=== PATIENT | male | born 1960 | race Caucasian/White ===

== ENCOUNTER 2018-06-05 15:02 | Inpatient (IN) ==
[2018-06-05] MEDS ORDERED: CEFUROXIME INJ 1,500 MG in SODIUM CHLORIDE 0.9% 100 ML IV ONE (15:13)
[2018-06-05] MEDS ORDERED: GLUCAGON 1 MG VIAL IM PRN (15:13)
[2018-06-05] MEDS ORDERED: DEXTROSE 50% 25 GM/50 ML SYRINGE IV PRN (15:13)
[2018-06-05] MEDS ORDERED: SODIUM CHLORIDE 0.9% 1,000 ML IV SCH (15:30)
[2018-06-05 20:14] LABS: Basophils # 0.1 10*3/uL (0.0-0.2); Basophils % 0.5 % (0.0-0.8); Eosinophils # 0.1 10*3/uL (0.0-0.87); Eosinophils % 1.3 % (0.00-10.9); Hematocrit 46.6 VOL% (42.0-52.0); Hemoglobin 15.2 GM/DL (14.0-18.0); Immature Granulocytes % 0.5 %; Immature Granulocytes Absolute 0.05 #; Lymphocytes # 2.2 10*3/uL (1.4-4.0); Lymphocytes % 21.1 % (21.2-54.2); Mean Corpuscular HGB Conc 32.6 GM/DL (32-36); Mean Corpuscular Hemoglobin 29 PG (27-34); Mean Corpuscular Volume 88.3 FL (87-102); Monocytes # 0.9 10*3/uL (0.11-0.8); Monocytes % 8.5 % (1.7-12.7); Neutrophils % 68.1 % (38.7-73.9); Platelet Count 211 T/CUMM (130-400); Red Blood Count 5.28 MC/CUMM (3.8-5.5); Red Cell Distribution Width 13.7 % (9.3-17.3); White Blood Count 10.2 T/CUMM (4-12)
[2018-06-05] MEDS ORDERED: NITROGLYCERIN DRIP 50 MG/250 ML BOTTLE IV PRN (20:23)
[2018-06-05] MEDS ORDERED: hydrALAZINE 20 MG/1 ML VIAL IV PRN (20:24)
[2018-06-05] MEDS ORDERED: DICLOFENAC SODIUM 75 MG TABLET PO SCH (21:00)
[2018-06-05] MEDS ORDERED: ZALEPLON 5 MG CAPSULE PO PRN (21:00)
[2018-06-05] MEDS: CHLORHEXIDINE 0.12% ORAL RINSE 60 ML BOTTLE SWISH/SPIT SCH (22:30)
[2018-06-05] MEDS: CHLORHEXIDINE 4% SOLN 118 ML BOTTLE TOP SCH (22:30)
[2018-06-05] MEDS: tiZANidine 4 MG TABLET PO SCH (22:31)
[2018-06-05] MEDS: DICLOFENAC SODIUM 50 MG TABLET PO SCH (22:31)
[2018-06-05 23:26] LABS: ABG Base Excess -0.4 MMOL/L (-2.5-2.5); ABG Oxygen Saturation 95.5 % (95-100); ABG PCO2 45.6 MM HG (35-48); ABG PH 7.357 (7.35-7.45); Allen Test Positive
[2018-06-06] MEDS: CHLORHEXIDINE 4% SOLN 118 ML BOTTLE TOP SCH ×3 (00:05→09:03)
[2018-06-06] MEDS ORDERED: PAPAVERINE 60 MG/2 ML VIAL ONE (04:24)
[2018-06-06] MEDS ORDERED: VANCOMYCIN 1,000 MG VIAL ONE (04:25)
[2018-06-06] MEDS ORDERED: LORazepam 2 MG/1 ML VIAL IV ONE (05:54)
[2018-06-06] MEDS ORDERED: VANCOMYCIN INJ 1,000 MG in SODIUM CHLORIDE 0.9% 250 ML IV ONE (06:30)
[2018-06-06] MEDS ORDERED: cefOXitin 2,000 MG in SYRINGE 1 EACH IV ONE (06:30)
[2018-06-06] MEDS ORDERED: ALBUMIN 5% 12.5 GM/250 ML VIAL IV ONE (07:30)
[2018-06-06] MEDS ORDERED: NITROPRUSSIDE 50 MG/2 ML VIAL ONE (07:30)
[2018-06-06] MEDS ORDERED: POTASSIUM CHLORIDE RIDER 100 ML IV ONE (07:30)
[2018-06-06] MEDS ORDERED: PHENYLEPHRINE DRIP 40 MG/250 ML PREMIX IV ONE (07:30)
[2018-06-06] MEDS ORDERED: CALCIUM CHLORIDE 1,000 MG/10 ML SYRINGE IV ONE (07:31)
[2018-06-06 07:56] LABS: ABG Base Excess -0.5 MMOL/L (-2.5-2.5); ABG Oxygen Saturation 98.9 % (95-100); ABG PCO2 50.5 MM HG (35-48); ABG PH 7.328 (7.35-7.45); ABG TCO2 22.6 MMOL/L (23-27); Glucose Heart Surgery 141 MG/DL (74-106); Hematocrit Heart Surgery 46.9 PERCENT (42-52); Hemoglobin Heart Surgery 15.3 G/DL (14.0-18.0); Ionized Calcium Arterial 1.19 MMOL/L (1.21-1.46); PCO2 Patient Temp Arterial 50.5 MMHG; PH Patient Temp Arterial 7.328; Patient Temperature 37 CELCIUS; Potassium Heart/CVR 4.5 MMOL/L (3.5-5.1); Sodium Heart/CVR 134 MMOL/L (135-145)
[2018-06-06] MEDS ORDERED: ASPIRIN EC 325 MG TABLET PO SCH (09:00)
[2018-06-06] MEDS ORDERED: LOSARTAN 25 MG TABLET PO SCH (09:00)
[2018-06-06] MEDS ORDERED: SPIRONOLACTONE 25 MG TABLET PO SCH (09:00)
[2018-06-06] MEDS ORDERED: CHOLECALCIFEROL 1,000 UNIT TABLET PO SCH (09:00)
[2018-06-06 09:01] LABS: Apearance,Urine CLEAR (Clear); Bacteria,Urine Occasional /HPF (Few); Bilirubin,Urine Negative (Negative); Blood, Urine Negative (Negative); Glucose,Urine (UA) Negative (Negative); Hyaline Casts,Urine 3 /LPF (0-3); Ketones,Urine Negative (Negative); Mucus,Urine Occasional /LPF (Occasional); Nitrite,Urine Negative (Negative); Protein,Urine 100 MG/DL; RBC,Urine 1 /HPF (0-4); Urine Color Yellow (Yellow); Urine Specific Gravity 1.025 (1.001-1.035); Urine Urobilinogen < 2.0 EU/DL (0.2-1.0); WBC,Urine <1 /HPF (0-6)
[2018-06-06] MEDS: CHLORHEXIDINE 0.12% ORAL RINSE 60 ML BOTTLE SWISH/SPIT SCH ×2 (09:03→21:39)
[2018-06-06] MEDS: DICLOFENAC SODIUM 50 MG TABLET PO SCH (09:04)
[2018-06-06] MEDS: tiZANidine 4 MG TABLET PO SCH (09:04)
[2018-06-06] MEDS ORDERED: PHENYLEPHRINE DRIP 20 MG/250 ML PREMIX IV ONE (10:03)
[2018-06-06] MEDS ORDERED: CALCIUM CHLORIDE 1,000 MG/10 ML VIAL IV ONE (10:03)
[2018-06-06] MEDS ORDERED: VECURONIUM 10 MG VIAL IV ONE (10:03)
[2018-06-06] MEDS ORDERED: HEPARIN/NACL 0.9% 2 UNITS/ML 500 ML IV ONE (10:03)
[2018-06-06] MEDS ORDERED: NITROGLYCERIN DRIP 50 MG/250 ML BOTTLE IV ONE (10:03)
[2018-06-06] MEDS ORDERED: AMINOCAPROIC ACID 5,000 MG/20 ML VIAL ONE (10:04)
[2018-06-06] MEDS ORDERED: PHENYLEPHRINE 1 MG/10 ML SYRINGE IV ONE (10:04)
[2018-06-06 10:05] LABS: Hematocrit Heart Surgery 30.2 PERCENT (42-52); Hemoglobin Heart Surgery 9.8 G/DL (14.0-18.0); PH Patient Temp Venous 7.373; PO2 Patient Temp Venous 44.5 MM HG; Potassium Heart/CVR 4.9 MMOL/L (3.5-5.1); VBG Base Excess 0.2 MEQ/L (0-4); VBG HCO3 24.3 MEQ/L (24-28); VBG Oxygen Saturation 79.5 %; VBG PH 7.373; VBG PO2 44.5 MMHG (17-40)
[2018-06-06 10:32] LABS: Hemoglobin Heart Surgery 10.8 G/DL (14.0-18.0); PCO2 Patient Temp Venous 38.6 MM HG; PH Patient Temp Venous 7.424; PO2 Patient Temp Venous 34.4 MM HG; Potassium Heart/CVR 5.1 MMOL/L (3.5-5.1); VBG Base Excess 0.2 MEQ/L (0-4); VBG HCO3 25.4 MEQ/L (24-28); VBG Oxygen Saturation 75.9 %; VBG PH 7.38; VBG PO2 42.5 MMHG (17-40)
[2018-06-06 11:08] LABS: PH Patient Temp Venous 7.439; PO2 Patient Temp Venous 36.3 MM HG; Potassium Heart/CVR 5.3 MMOL/L (3.5-5.1); VBG Base Excess -0.8 MEQ/L (0-4); VBG HCO3 23.6 MEQ/L (24-28); VBG PCO2 38.2 MMHG (41-51); VBG PH 7.409; VBG PO2 41.8 MMHG (17-40)
[2018-06-06] MEDS ORDERED: MANNITOL 100 GM/500 ML BAG IV ONE (11:53)
[2018-06-06] MEDS ORDERED: FUROSEMIDE 20 MG/2 ML VIAL ONE (11:54)
[2018-06-06] MEDS ORDERED: ALBUMIN 25% 25 GM/100 ML VIAL IV ONE (11:54)
[2018-06-06] MEDS ORDERED: SODIUM BICARBONATE 50 MEQ/50 ML VIAL IV ONE (11:54)
[2018-06-06] MEDS ORDERED: methylPREDNISolone SOD SUC 1,000 MG/8 ML VIAL ONE (11:54)
[2018-06-06] MEDS ORDERED: MAGNESIUM SULFATE 5 GM/10 ML VIAL IV ONE (11:54)
[2018-06-06] MEDS ORDERED: HEPARIN 10,000 UNIT/10 ML VIAL ONE (11:54)
[2018-06-06] MEDS ORDERED: PROTAMINE SULFATE 250 MG/25 ML VIAL IV ONE (11:54)
[2018-06-06] MEDS ORDERED: DEXTROSE 5% KCL 20 MEQ 20 MEQ/1,000 ML BAG IV ONE (11:54)
[2018-06-06 11:55] LABS: ABG Base Excess -2.2 MMOL/L (-2.5-2.5); ABG HCO3 22.6 MMOL/L (20-26); ABG Oxygen Saturation 99.4 % (95-100); ABG PCO2 41.2 MM HG (35-48); ABG PH 7.358 (7.35-7.45); ABG TCO2 20.6 MMOL/L (23-27); Glucose Heart Surgery 234 MG/DL (74-106); Hematocrit Heart Surgery 37.2 PERCENT (42-52); Hemoglobin Heart Surgery 12.1 G/DL (14.0-18.0); Ionized Calcium Arterial 1.23 MMOL/L (1.21-1.46); PCO2 Patient Temp Arterial 41.2 MMHG; PH Patient Temp Arterial 7.358; Patient Temperature 37 CELCIUS; Potassium Heart/CVR 4.3 MMOL/L (3.5-5.1); Sodium Heart/CVR 130 MMOL/L (135-145)
[2018-06-06] MEDS ORDERED: PROTAMINE SULFATE 50 MG/5 ML VIAL IV ONE (11:55)
[2018-06-06] MEDS ORDERED: MIDAZOLAM 2 MG/2 ML VIAL IV PRN (12:46)
[2018-06-06] MEDS ORDERED: INSULIN REGULAR 100 UNIT/ML IV ONE (12:46)
[2018-06-06] MEDS ORDERED: MAGNESIUM SULF RIDER 2 GM in PREMIX 1 EACH IV PRN (12:46)
[2018-06-06] MEDS ORDERED: MIDAZOLAM 10 MG/2 ML VIAL IV PRN (12:46)
[2018-06-06] MEDS ORDERED: ACETAMINOPHEN 650 MG SUPP RECTAL PRN (12:46)
[2018-06-06] MEDS ORDERED: PHENYLEPHRINE DRIP 40 MG/250 ML PREMIX IV PRN (12:46)
[2018-06-06] MEDS ORDERED: LACTATED RINGERS 250 ML IV PRN (12:46)
[2018-06-06] MEDS ORDERED: VECURONIUM 10 MG VIAL IV PRN ×2 (12:46)
[2018-06-06] MEDS ORDERED: CALCIUM CHLORIDE 1,000 MG/10 ML SYRINGE IV PRN (12:46)
[2018-06-06] MEDS ORDERED: MAGNESIUM SULF RIDER 4 GM in PREMIX 1 EACH IV PRN (12:46)
[2018-06-06] MEDS ORDERED: POTASSIUM CHLORIDE RIDER 10 MEQ in PREMIX 1 EACH IV PRN (12:46)
[2018-06-06] MEDS ORDERED: DEXTROSE 50% 25 GM/50 ML SYRINGE IV PRN ×2 (12:46)
[2018-06-06 13:18] LABS: ABG HCO3 25.8 MMOL/L (20-26); ABG Oxygen Saturation 92.9 % (95-100); ABG PCO2 51.4 MM HG (35-48); ABG PH 7.318 (7.35-7.45); ABG PO2 73.6 MM HG (80-95); ABG TCO2 27.3 MMOL/L (23-27); Glucose Heart Surgery 173 MG/DL (74-106); Hemoglobin Heart Surgery 13.3 G/DL (14.0-18.0); Potassium Heart/CVR 4.1 MMOL/L (3.5-5.1)
[2018-06-06] MEDS: SODIUM CHLORIDE 0.45% 1,000 ML IV SCH ×2 (13:19→13:20)
[2018-06-06 13:22] LABS: Basophils % 0.3 % (0.0-0.8); Mean Platelet Volume 11.2 FL (9.6-12.0)
[2018-06-06] MEDS: LACTATED RINGERS 1,000 ML IV PRN ×2 (13:23→16:16)
[2018-06-06 13:30] LABS: INR 1.1; PT Patient Result 11.4 SECS; Partial Thromboplastin Time 24.1 SECS (0-40)
[2018-06-06 13:31] LABS: Eosinophils # 0.1 10*3/uL (0.0-0.87); Eosinophils % 0.8 % (0.00-10.9); Hematocrit 39.5 VOL% (42.0-52.0); Immature Granulocytes % 0.7 %; Immature Granulocytes Absolute 0.08 #; Lymphocytes % 8.3 % (21.2-54.2); Mean Corpuscular HGB Conc 31.9 GM/DL (32-36); Mean Corpuscular Hemoglobin 29 PG (27-34); Mean Corpuscular Volume 90.4 FL (87-102); Monocytes # 0.7 10*3/uL (0.11-0.8); Monocytes % 5.7 % (1.7-12.7); Neutrophils # 9.7 10*3/uL (1.4-7.4); Neutrophils % 84.2 % (38.7-73.9); Red Blood Count 4.37 MC/CUMM (3.8-5.5); Red Cell Distribution Width 13.6 % (9.3-17.3); White Blood Count 11.5 T/CUMM (4-12)
[2018-06-06] MEDS: POTASSIUM CHLORIDE RIDER 20 MEQ in PREMIX 1 EACH IV PRN ×4 (13:31→21:46)
[2018-06-06 13:34] LABS: Hemoglobin 12.6 GM/DL (14.0-18.0); Platelet Count 172 T/CUMM (130-400)
[2018-06-06 13:48] LABS: CKMB % 7.3 %
[2018-06-06 13:50] LABS: Troponin I 2.15 NG/ML (0.00-0.045)
[2018-06-06 13:53] LABS: Albumin 3.1 G/DL (3.4-5.0); Bilirubin,Total 1.3 MG/DL (0.2-1.0); Calcium 7.9 MG/DL (8.5-10.1); Osmolality,Calculated 282.5 MOS/KG (273-304); Potassium 4.2 MMOL/L (3.5-5.1); Total Protein 5.6 G/DL (6.4-8.3)
[2018-06-06 14:11] LABS: ABG Base Excess -0.4 MMOL/L (-2.5-2.5); ABG Oxygen Saturation 95.2 % (95-100); ABG PCO2 45.9 MM HG (35-48); ABG PH 7.354 (7.35-7.45); ABG PO2 78.6 MM HG (80-95); ABG TCO2 22.4 MMOL/L (23-27); Glucose Heart Surgery 175 MG/DL (74-106); Hematocrit Heart Surgery 41.1 PERCENT (42-52); Hemoglobin Heart Surgery 13.4 G/DL (14.0-18.0); Potassium Heart/CVR 4.6 MMOL/L (3.5-5.1)
[2018-06-06] MEDS: INSULIN REGULAR DRIP 100 ML IV SCH (14:34)
[2018-06-06] MEDS: methylPREDNISolone SOD SUC 125 MG/2 ML VIAL IV SCH ×2 (14:58→21:44)
[2018-06-06] MEDS: ALBUTEROL/IPRATROPIUM 3 ML NEB RESP TX SCH ×3 (15:06→23:13)
[2018-06-06 16:20] LABS: ABG Base Excess -1.6 MMOL/L (-2.5-2.5); ABG HCO3 24.5 MMOL/L (20-26); ABG Oxygen Saturation 97.3 % (95-100); ABG PCO2 46.5 MM HG (35-48); ABG PH 7.339 (7.35-7.45); ABG PO2 108.5 MM HG (80-95); ABG TCO2 25.9 MMOL/L (23-27); Glucose Heart Surgery 151 MG/DL (74-106); Hemoglobin Heart Surgery 13.8 G/DL (14.0-18.0); Potassium Heart/CVR 4.4 MMOL/L (3.5-5.1)
[2018-06-06] MEDS: INSULIN REGULAR 100 UNIT/ML IV PRN (16:24)
[2018-06-06] MEDS: ALBUMIN 5% 12.5 GM in PREMIX 1 EACH IV PRN ×2 (16:29→16:48)
[2018-06-06] MEDS ORDERED: PROPOFOL 1,000 MG/100 ML BOTTLE IV ONE (17:51)
[2018-06-06] MEDS: PROPOFOL 1,000 MG/100 ML BOTTLE IV SCH ×2 (18:12→23:41)
[2018-06-06 18:40] LABS: ABG Base Excess -2.8 MMOL/L (-2.5-2.5); ABG Oxygen Saturation 96.2 % (95-100); ABG PCO2 43.6 MM HG (35-48); ABG PH 7.333 (7.35-7.45); ABG PO2 86.5 MM HG (80-95); ABG TCO2 20.5 MMOL/L (23-27); Glucose Heart Surgery 160 MG/DL (74-106); Hematocrit Heart Surgery 38.2 PERCENT (42-52); Hemoglobin Heart Surgery 12.4 G/DL (14.0-18.0); Potassium Heart/CVR 4.2 MMOL/L (3.5-5.1)
[2018-06-06] MEDS ORDERED: FUROSEMIDE 40 MG/4 ML VIAL IV ONE (19:18)
[2018-06-06] MEDS: HYDROmorphone 2 MG/1 ML VIAL IV PRN (20:15)
[2018-06-06 21:25] LABS: ABG Base Excess -1.1 MMOL/L (-2.5-2.5); ABG HCO3 23.3 MMOL/L (20-26); ABG Oxygen Saturation 96.3 % (95-100); ABG PCO2 38.1 MM HG (35-48); ABG PH 7.405 (7.35-7.45); ABG PO2 88.9 MM HG (80-95); ABG TCO2 24.5 MMOL/L (23-27); Glucose Heart Surgery 141 MG/DL (74-106); Hemoglobin Heart Surgery 13.3 G/DL (14.0-18.0); Potassium Heart/CVR 4.1 MMOL/L (3.5-5.1)
[2018-06-06 21:43] LABS: CKMB % 5.7 %
[2018-06-06 21:45] LABS: Troponin I 2.85 NG/ML (0.00-0.045)
[2018-06-07] MEDS: VANCOMYCIN INJ 1,000 MG in SODIUM CHLORIDE 0.9% 250 ML IV SCH ×2 (01:08→11:37)
[2018-06-07] MEDS: ALBUTEROL/IPRATROPIUM 3 ML NEB RESP TX SCH ×6 (03:30→22:51)
[2018-06-07 04:02] LABS: ABG Base Excess -0.5 MMOL/L (-2.5-2.5); ABG HCO3 23.8 MMOL/L (20-26); ABG Oxygen Saturation 95.2 % (95-100); ABG PCO2 38.4 MM HG (35-48); ABG PH 7.411 (7.35-7.45); Glucose Heart Surgery 139 MG/DL (74-106); Potassium Heart/CVR 4.1 MMOL/L (3.5-5.1)
[2018-06-07 04:16] LABS: Basophils % 0.1 % (0.0-0.8); Hematocrit 38.2 VOL% (42.0-52.0); Hemoglobin 12.3 GM/DL (14.0-18.0); Immature Granulocytes % 0.7 %; Lymphocytes # 0.8 10*3/uL (1.4-4.0); Lymphocytes % 5.8 % (21.2-54.2); Mean Corpuscular HGB Conc 32.2 GM/DL (32-36); Mean Corpuscular Hemoglobin 29 PG (27-34); Mean Corpuscular Volume 89.5 FL (87-102); Mean Platelet Volume 11.8 FL (9.6-12.0); Monocytes # 0.7 10*3/uL (0.11-0.8); Monocytes % 4.7 % (1.7-12.7); Neutrophils # 12.7 10*3/uL (1.4-7.4); Neutrophils % 88.7 % (38.7-73.9); Platelet Count 171 T/CUMM (130-400); Red Blood Count 4.27 MC/CUMM (3.8-5.5); Red Cell Distribution Width 13.8 % (9.3-17.3); White Blood Count 14.4 T/CUMM (4-12)
[2018-06-07] MEDS: PROPOFOL 1,000 MG/100 ML BOTTLE IV SCH ×6 (04:27→21:22)
[2018-06-07] MEDS: methylPREDNISolone SOD SUC 125 MG/2 ML VIAL IV SCH ×2 (04:30→08:54)
[2018-06-07 04:45] LABS: Albumin 3.3 G/DL (3.4-5.0); Bilirubin,Direct 0.1 MG/DL (0.0-0.20); Bilirubin,Total 0.5 MG/DL (0.2-1.0); Calcium 8.1 MG/DL (8.5-10.1); Osmolality,Calculated 286.3 MOS/KG (273-304); Potassium 4.2 MMOL/L (3.5-5.1)
[2018-06-07 04:46] LABS: CKMB % 4.5 %
[2018-06-07 04:49] LABS: Troponin I 3.41 NG/ML (0.00-0.045)
[2018-06-07 04:56] LABS: ABG Base Excess -0.9 MMOL/L (-2.5-2.5); ABG HCO3 23.6 MMOL/L (20-26); ABG Oxygen Saturation 95.9 % (95-100); ABG PCO2 39.2 MM HG (35-48); ABG PH 7.392 (7.35-7.45); ABG PO2 81.4 MM HG (80-95); ABG TCO2 20.9 MMOL/L (23-27); Glucose Heart Surgery 154 MG/DL (74-106); Hematocrit Heart Surgery 39.3 PERCENT (42-52); Hemoglobin Heart Surgery 12.8 G/DL (14.0-18.0); Potassium Heart/CVR 4.1 MMOL/L (3.5-5.1)
[2018-06-07] MEDS: POTASSIUM CHLORIDE RIDER 20 MEQ in PREMIX 1 EACH IV PRN ×2 (04:57→06:01)
[2018-06-07 05:40] LABS: ABG Base Excess -0.8 MMOL/L (-2.5-2.5); ABG HCO3 23.7 MMOL/L (20-26); ABG Oxygen Saturation 95.3 % (95-100); ABG PCO2 40.1 MM HG (35-48); ABG PH 7.387 (7.35-7.45); ABG PO2 77.9 MM HG (80-95); ABG TCO2 21.2 MMOL/L (23-27); Glucose Heart Surgery 156 MG/DL (74-106); Hematocrit Heart Surgery 39.2 PERCENT (42-52); Hemoglobin Heart Surgery 12.7 G/DL (14.0-18.0); Potassium Heart/CVR 4.4 MMOL/L (3.5-5.1)
[2018-06-07] MEDS ORDERED: FUROSEMIDE 40 MG/4 ML VIAL IV PRN (05:41)
[2018-06-07] MEDS: INSULIN REGULAR 100 UNIT/ML IV PRN (05:55)
[2018-06-07] MEDS: NITROPRUSSIDE 100 MG in DEXTROSE 5% 250 ML IV PRN (07:36)
[2018-06-07] MEDS: HYDROmorphone 2 MG/1 ML VIAL IV PRN ×7 (08:15→23:09)
[2018-06-07] MEDS: CHLORHEXIDINE 0.12% ORAL RINSE 60 ML BOTTLE SWISH/SPIT SCH ×2 (08:56→20:22)
[2018-06-07] MEDS ORDERED: GLUCAGON 1 MG VIAL IM PRN (09:51)
[2018-06-07] MEDS ORDERED: DEXTROSE 50% 25 GM/50 ML SYRINGE IV PRN (09:51)
[2018-06-07 11:45] LABS: ABG Base Excess -0.3 MMOL/L (-2.5-2.5); ABG Oxygen Saturation 92.6 % (95-100); ABG PCO2 42.8 MM HG (35-48); ABG PH 7.374 (7.35-7.45); ABG PO2 68.8 MM HG (80-95); Glucose Heart Surgery 185 MG/DL (74-106); Hematocrit Heart Surgery 39.4 PERCENT (42-52); Hemoglobin Heart Surgery 12.8 G/DL (14.0-18.0); Potassium Heart/CVR 4.3 MMOL/L (3.5-5.1)
[2018-06-07] MEDS: INSULIN REGULAR 100 UNIT/ML SUBCUT SCH ×4 (12:11→19:53)
[2018-06-07] MEDS ORDERED: FUROSEMIDE 40 MG/4 ML VIAL IV ONE ×2 (13:08→19:49)
[2018-06-07] MEDS: SODIUM CHLORIDE 0.45% 1,000 ML IV SCH ×2 (13:30)
[2018-06-07] MEDS: INSULIN REGULAR DRIP 100 ML IV SCH (13:30)
[2018-06-07] MEDS: CEFEPIME 1,000 MG in SYRINGE 1 EACH IV SCH (13:34)
[2018-06-07 14:22] LABS: ABG Base Excess -0.1 MMOL/L (-2.5-2.5); ABG HCO3 24.3 MMOL/L (20-26); ABG Oxygen Saturation 94.5 % (95-100); ABG PH 7.377 (7.35-7.45); ABG PO2 75.5 MM HG (80-95); ABG TCO2 22.1 MMOL/L (23-27); Glucose Heart Surgery 205 MG/DL (74-106); Hematocrit Heart Surgery 40.8 PERCENT (42-52); Hemoglobin Heart Surgery 13.3 G/DL (14.0-18.0); Potassium Heart/CVR 4.5 MMOL/L (3.5-5.1)
[2018-06-07] MEDS: methylPREDNISolone SOD SUC 40 MG/1 ML VIAL IV SCH ×2 (15:13→20:22)
[2018-06-07 16:30] LABS: ABG Base Excess -1.2 MMOL/L (-2.5-2.5); ABG HCO3 23.3 MMOL/L (20-26); ABG Oxygen Saturation 95.4 % (95-100); ABG PCO2 42.2 MM HG (35-48); ABG PH 7.366 (7.35-7.45); ABG PO2 83.5 MM HG (80-95); ABG TCO2 21.3 MMOL/L (23-27); Glucose Heart Surgery 193 MG/DL (74-106); Hematocrit Heart Surgery 39.6 PERCENT (42-52); Hemoglobin Heart Surgery 12.9 G/DL (14.0-18.0); Potassium Heart/CVR 4.4 MMOL/L (3.5-5.1)
[2018-06-07 16:44] LABS: CKMB % 3.9 %
[2018-06-07 16:48] LABS: Troponin I 2.64 NG/ML (0.00-0.045)
[2018-06-07 19:42] LABS: ABG Base Excess 0.2 MMOL/L (-2.5-2.5); ABG HCO3 24.5 MMOL/L (20-26); ABG Oxygen Saturation 96.2 % (95-100); ABG PH 7.402 (7.35-7.45); ABG PO2 84.4 MM HG (80-95); ABG TCO2 21.8 MMOL/L (23-27); Glucose Heart Surgery 188 MG/DL (74-106); Hematocrit Heart Surgery 38.9 PERCENT (42-52); Hemoglobin Heart Surgery 12.6 G/DL (14.0-18.0); Potassium Heart/CVR 4.4 MMOL/L (3.5-5.1)
[2018-06-07 21:20] LABS: ABG Base Excess -1.2 MMOL/L (-2.5-2.5); ABG HCO3 23.3 MMOL/L (20-26); ABG Oxygen Saturation 94.7 % (95-100); ABG PCO2 47.7 MM HG (35-48); ABG PH 7.332 (7.35-7.45); ABG PO2 82.1 MM HG (80-95); Glucose Heart Surgery 189 MG/DL (74-106); Hematocrit Heart Surgery 42.4 PERCENT (42-52); Hemoglobin Heart Surgery 13.8 G/DL (14.0-18.0); Potassium Heart/CVR 4.5 MMOL/L (3.5-5.1)
[2018-06-07 22:29] LABS: ABG Base Excess -1.6 MMOL/L (-2.5-2.5); ABG HCO3 23.1 MMOL/L (20-26); ABG PCO2 44.8 MM HG (35-48); ABG PH 7.344 (7.35-7.45); ABG TCO2 21.4 MMOL/L (23-27); Glucose Heart Surgery 190 MG/DL (74-106); Hematocrit Heart Surgery 40.9 PERCENT (42-52); Hemoglobin Heart Surgery 13.3 G/DL (14.0-18.0); Potassium Heart/CVR 4.7 MMOL/L (3.5-5.1)
[2018-06-08] MEDS: ALBUMIN 5% 12.5 GM in PREMIX 1 EACH IV PRN (00:08)
[2018-06-08] MEDS: INSULIN REGULAR 100 UNIT/ML SUBCUT SCH ×6 (00:16→21:07)
[2018-06-08] MEDS: VANCOMYCIN INJ 1,000 MG in SODIUM CHLORIDE 0.9% 250 ML IV SCH ×2 (00:16→12:05)
[2018-06-08 00:30] LABS: ABG Base Excess -1.4 MMOL/L (-2.5-2.5); ABG HCO3 23.2 MMOL/L (20-26); ABG Oxygen Saturation 97.7 % (95-100); ABG PCO2 44.9 MM HG (35-48); ABG PH 7.345 (7.35-7.45); ABG TCO2 21.6 MMOL/L (23-27); Glucose Heart Surgery 196 MG/DL (74-106); Hematocrit Heart Surgery 39.3 PERCENT (42-52); Hemoglobin Heart Surgery 12.8 G/DL (14.0-18.0); Potassium Heart/CVR 4.5 MMOL/L (3.5-5.1)
[2018-06-08] MEDS: PROPOFOL 1,000 MG/100 ML BOTTLE IV SCH ×2 (01:40→06:19)
[2018-06-08] MEDS: HYDROmorphone 2 MG/1 ML VIAL IV PRN ×5 (01:41→15:43)
[2018-06-08] MEDS ORDERED: METOPROLOL TARTRATE 5 MG/5 ML VIAL IV ONE (02:09)
[2018-06-08] MEDS ORDERED: ESMOLOL 100 MG/10 ML VIAL IV ONE (02:12)
[2018-06-08] MEDS ORDERED: FUROSEMIDE 40 MG/4 ML VIAL IV ONE (02:25)
[2018-06-08] MEDS: CEFEPIME 1,000 MG in SYRINGE 1 EACH IV SCH ×2 (02:34→14:23)
[2018-06-08 02:41] LABS: ABG Base Excess -1.8 MMOL/L (-2.5-2.5); ABG HCO3 24.2 MMOL/L (20-26); ABG Oxygen Saturation 93.5 % (95-100); ABG PCO2 45.8 MM HG (35-48); ABG PO2 77.2 MM HG (80-95); ABG TCO2 25.6 MMOL/L (23-27); Glucose Heart Surgery 169 MG/DL (74-106); Hemoglobin Heart Surgery 13.2 G/DL (14.0-18.0); Potassium Heart/CVR 4.7 MMOL/L (3.5-5.1)
[2018-06-08] MEDS: methylPREDNISolone SOD SUC 40 MG/1 ML VIAL IV SCH ×4 (02:41→22:18)
[2018-06-08] MEDS: ALBUTEROL/IPRATROPIUM 3 ML NEB RESP TX SCH ×6 (03:33→22:59)
[2018-06-08 03:54] LABS: ABG Base Excess -1.1 MMOL/L (-2.5-2.5); ABG HCO3 23.5 MMOL/L (20-26); ABG Oxygen Saturation 98.2 % (95-100); ABG PCO2 37.4 MM HG (35-48); ABG PH 7.403 (7.35-7.45); ABG TCO2 20.5 MMOL/L (23-27); Glucose Heart Surgery 206 MG/DL (74-106); Hematocrit Heart Surgery 38.4 PERCENT (42-52); Hemoglobin Heart Surgery 12.5 G/DL (14.0-18.0); Potassium Heart/CVR 4.4 MMOL/L (3.5-5.1)
[2018-06-08 03:57] LABS: Basophils % 0.2 % (0.0-0.8); Hematocrit 36.9 VOL% (42.0-52.0); Hemoglobin 11.6 GM/DL (14.0-18.0); Immature Granulocytes % 1.1 %; Lymphocytes # 0.6 10*3/uL (1.4-4.0); Lymphocytes % 3.3 % (21.2-54.2); Mean Corpuscular HGB Conc 31.4 GM/DL (32-36); Mean Corpuscular Hemoglobin 29 PG (27-34); Mean Corpuscular Volume 91.3 FL (87-102); Mean Platelet Volume 11.8 FL (9.6-12.0); Monocytes # 1.4 10*3/uL (0.11-0.8); Monocytes % 7.7 % (1.7-12.7); Neutrophils % 87.7 % (38.7-73.9); Platelet Count 184 T/CUMM (130-400); Red Blood Count 4.04 MC/CUMM (3.8-5.5); White Blood Count 18.3 T/CUMM (4-12)
[2018-06-08 04:10] LABS: Bilirubin,Direct 0.1 MG/DL (0.0-0.20); Bilirubin,Total 0.4 MG/DL (0.2-1.0); Calcium 7.7 MG/DL (8.5-10.1); Osmolality,Calculated 292.4 MOS/KG (273-304); Potassium 4.2 MMOL/L (3.5-5.1); Total Protein 5.8 G/DL (6.4-8.3)
[2018-06-08 07:16] LABS: ABG Base Excess -0.5 MMOL/L (-2.5-2.5); ABG HCO3 23.9 MMOL/L (20-26); ABG PCO2 43.3 MM HG (35-48); ABG PH 7.369 (7.35-7.45); ABG PO2 68.1 MM HG (80-95); Glucose Heart Surgery 192 MG/DL (74-106); Hematocrit Heart Surgery 40.1 PERCENT (42-52); Potassium Heart/CVR 4.5 MMOL/L (3.5-5.1)
[2018-06-08] MEDS ORDERED: HEPARIN/NACL 0.9% 2 UNITS/ML 500 ML IV ONE (07:28)
[2018-06-08] MEDS: DEXMEDETOMIDINE 200 MCG in SODIUM CHLORIDE 0.9% 48 ML IV PRN ×2 (08:30→10:01)
[2018-06-08] MEDS: CHLORHEXIDINE 0.12% ORAL RINSE 60 ML BOTTLE SWISH/SPIT SCH ×2 (08:41→21:38)
[2018-06-08 09:42] LABS: ABG HCO3 24.3 MMOL/L (20-26); ABG Oxygen Saturation 90.9 % (95-100); ABG PCO2 40.9 MM HG (35-48); ABG PH 7.393 (7.35-7.45); ABG PO2 63.2 MM HG (80-95); Glucose Heart Surgery 186 MG/DL (74-106); Hematocrit Heart Surgery 38.5 PERCENT (42-52); Hemoglobin Heart Surgery 12.5 G/DL (14.0-18.0); Potassium Heart/CVR 4.4 MMOL/L (3.5-5.1)
[2018-06-08 11:49] LABS: ABG Base Excess 0.3 MMOL/L (-2.5-2.5); ABG HCO3 24.5 MMOL/L (20-26); ABG Oxygen Saturation 92.1 % (95-100); ABG PO2 65.4 MM HG (80-95); ABG TCO2 21.7 MMOL/L (23-27); Glucose Heart Surgery 197 MG/DL (74-106); Hematocrit Heart Surgery 39.9 PERCENT (42-52); Potassium Heart/CVR 4.4 MMOL/L (3.5-5.1)
[2018-06-08 12:39] LABS: ABG Base Excess 0.4 MMOL/L (-2.5-2.5); ABG HCO3 24.7 MMOL/L (20-26); ABG Oxygen Saturation 93.8 % (95-100); ABG PCO2 39.3 MM HG (35-48); ABG PO2 71.5 MM HG (80-95); ABG TCO2 21.8 MMOL/L (23-27); Glucose Heart Surgery 191 MG/DL (74-106); Hematocrit Heart Surgery 39.2 PERCENT (42-52); Hemoglobin Heart Surgery 12.8 G/DL (14.0-18.0); Potassium Heart/CVR 4.3 MMOL/L (3.5-5.1)
[2018-06-08 13:52] LABS: ABG Base Excess 0.3 MMOL/L (-2.5-2.5); ABG HCO3 24.6 MMOL/L (20-26); ABG PCO2 39.4 MM HG (35-48); ABG PH 7.408 (7.35-7.45); ABG PO2 68.1 MM HG (80-95); ABG TCO2 21.8 MMOL/L (23-27); Glucose Heart Surgery 181 MG/DL (74-106); Hematocrit Heart Surgery 39.4 PERCENT (42-52); Hemoglobin Heart Surgery 12.8 G/DL (14.0-18.0); Potassium Heart/CVR 4.2 MMOL/L (3.5-5.1)
[2018-06-08] MEDS: SODIUM CHLORIDE 0.45% 1,000 ML IV SCH ×2 (14:02→14:24)
[2018-06-08 15:38] LABS: ABG Base Excess 0.8 MMOL/L (-2.5-2.5); ABG Oxygen Saturation 96.2 % (95-100); ABG PCO2 45.2 MM HG (35-48); ABG PH 7.375 (7.35-7.45); ABG TCO2 23.2 MMOL/L (23-27); Glucose Heart Surgery 172 MG/DL (74-106); Hematocrit Heart Surgery 39.8 PERCENT (42-52); Hemoglobin Heart Surgery 12.9 G/DL (14.0-18.0); Potassium Heart/CVR 4.2 MMOL/L (3.5-5.1)
[2018-06-08] MEDS: LOSARTAN 50 MG TABLET PO SCH (16:27)
[2018-06-08] MEDS: METOPROLOL TARTRATE 50 MG TABLET PO SCH ×2 (16:28→23:46)
[2018-06-08] MEDS ORDERED: NITROGLYCERIN DRIP 50 MG/250 ML BOTTLE IV ONE (17:01)
[2018-06-08] MEDS ORDERED: NITROPRUSSIDE 50 MG/2 ML VIAL ONE (17:18)
[2018-06-08] MEDS: NITROPRUSSIDE 100 MG in DEXTROSE 5% 250 ML IV PRN (17:27)
[2018-06-08] MEDS ORDERED: hydrALAZINE 20 MG/1 ML VIAL ONE (17:53)
[2018-06-08] MEDS ORDERED: LABETALOL 20 MG/4 ML SYRINGE IV ONE (17:59)
[2018-06-08] MEDS ORDERED: hydrALAZINE 20 MG/1 ML VIAL IV ONE (18:00)
[2018-06-08] MEDS: LABETALOL INJ 200 MG in SODIUM CHLORIDE 0.9% 160 ML IV SCH (18:40)
[2018-06-08] MEDS: ONDANSETRON 4 MG/2 ML VIAL IV PRN (18:44)
[2018-06-09] MEDS: METOPROLOL TARTRATE 50 MG TABLET PO SCH ×2 (00:10→09:27)
[2018-06-09] MEDS: INSULIN REGULAR 100 UNIT/ML SUBCUT SCH ×6 (01:37→21:44)
[2018-06-09] MEDS: CEFEPIME 1,000 MG in SYRINGE 1 EACH IV SCH ×2 (02:24→14:54)
[2018-06-09] MEDS: LABETALOL INJ 200 MG in SODIUM CHLORIDE 0.9% 160 ML IV SCH (02:37)
[2018-06-09] MEDS: ALBUTEROL/IPRATROPIUM 3 ML NEB RESP TX SCH ×5 (02:54→19:21)
[2018-06-09] MEDS: methylPREDNISolone SOD SUC 40 MG/1 ML VIAL IV SCH ×4 (04:28→18:32)
[2018-06-09 04:30] LABS: Basophils % 0.1 % (0.0-0.8); Hematocrit 35.7 VOL% (42.0-52.0); Hemoglobin 11.4 GM/DL (14.0-18.0); Immature Granulocytes % 1.3 %; Immature Granulocytes Absolute 0.19 #; Lymphocytes # 0.7 10*3/uL (1.4-4.0); Lymphocytes % 4.4 % (21.2-54.2); Mean Corpuscular HGB Conc 31.9 GM/DL (32-36); Mean Corpuscular Hemoglobin 29 PG (27-34); Mean Corpuscular Volume 90.2 FL (87-102); Mean Platelet Volume 11.1 FL (9.6-12.0); Monocytes % 6.6 % (1.7-12.7); Neutrophils # 13.1 10*3/uL (1.4-7.4); Neutrophils % 87.6 % (38.7-73.9); Platelet Count 195 T/CUMM (130-400); Red Blood Count 3.96 MC/CUMM (3.8-5.5)
[2018-06-09 04:35] LABS: ABG Base Excess 2.3 MMOL/L (-2.5-2.5); ABG HCO3 27.1 MMOL/L (20-26); ABG PCO2 43.2 MM HG (35-48); ABG PH 7.416 (7.35-7.45); ABG PO2 128.8 MM HG (80-95); ABG TCO2 28.5 MMOL/L (23-27); Glucose Heart Surgery 157 MG/DL (74-106); Potassium Heart/CVR 4.4 MMOL/L (3.5-5.1)
[2018-06-09 04:59] LABS: Albumin 2.7 G/DL (3.4-5.0); Bilirubin,Direct 0.15 MG/DL (0.0-0.20); Bilirubin,Total 0.5 MG/DL (0.2-1.0); Calcium 8.3 MG/DL (8.5-10.1); Osmolality,Calculated 292.3 MOS/KG (273-304); Potassium 4.5 MMOL/L (3.5-5.1); Total Protein 5.9 G/DL (6.4-8.3)
[2018-06-09 05:53] LABS: ABG Base Excess 0.4 MMOL/L (-2.5-2.5); ABG HCO3 24.7 MMOL/L (20-26); ABG Oxygen Saturation 93.6 % (95-100); ABG PCO2 40.7 MM HG (35-48); ABG PO2 72.8 MM HG (80-95); ABG TCO2 22.3 MMOL/L (23-27); Glucose Heart Surgery 168 MG/DL (74-106); Hematocrit Heart Surgery 37.7 PERCENT (42-52); Hemoglobin Heart Surgery 12.3 G/DL (14.0-18.0); Potassium Heart/CVR 4.3 MMOL/L (3.5-5.1)
[2018-06-09 06:32] LABS: Hypochromasia 1+; Lymphocytes 4 % (20-55); Platelet Estimate Adequate; Segmented Neutrophils 94 % (50-85); Total Cells Counted 100
[2018-06-09] MEDS: ONDANSETRON 4 MG/2 ML VIAL IV PRN (06:47)
[2018-06-09] MEDS ORDERED: METOCLOPRAMIDE 10 MG/2 ML VIAL IV ONE (09:10)
[2018-06-09] MEDS: LOSARTAN 50 MG TABLET PO SCH (09:22)
[2018-06-09] MEDS: CHLORHEXIDINE 0.12% ORAL RINSE 60 ML BOTTLE SWISH/SPIT SCH ×2 (09:28→21:46)
[2018-06-09] MEDS: LABETALOL 200 MG TABLET PO SCH ×2 (10:17→21:45)
[2018-06-09] MEDS: SODIUM CHLORIDE 0.45% 1,000 ML IV SCH ×2 (18:31)
[2018-06-09] MEDS ORDERED: FUROSEMIDE 40 MG/4 ML VIAL IV ONE (19:47)
[2018-06-10] MEDS: INSULIN REGULAR 100 UNIT/ML SUBCUT SCH ×3 (00:28→09:12)
[2018-06-10] MEDS: ALBUTEROL/IPRATROPIUM 3 ML NEB RESP TX SCH ×7 (00:28→23:36)
[2018-06-10] MEDS: methylPREDNISolone SOD SUC 40 MG/1 ML VIAL IV SCH ×3 (01:30→18:57)
[2018-06-10] MEDS: CEFEPIME 1,000 MG in SYRINGE 1 EACH IV SCH ×3 (01:33→18:58)
[2018-06-10 08:20] LABS: ABG Base Excess 4.2 MMOL/L (-2.5-2.5); ABG HCO3 28.2 MMOL/L (20-26); ABG Oxygen Saturation 97.8 % (95-100); ABG PCO2 41.9 MM HG (35-48); ABG PH 7.444 (7.35-7.45); ABG TCO2 25.2 MMOL/L (23-27); Glucose Heart Surgery 148 MG/DL (74-106); Hematocrit Heart Surgery 38.1 PERCENT (42-52); Hemoglobin Heart Surgery 12.4 G/DL (14.0-18.0); Potassium Heart/CVR 4.7 MMOL/L (3.5-5.1)
[2018-06-10] MEDS: LABETALOL 200 MG TABLET PO SCH ×2 (08:45→22:20)
[2018-06-10] MEDS: LOSARTAN 50 MG TABLET PO SCH ×2 (08:45→14:29)
[2018-06-10] MEDS: CHLORHEXIDINE 0.12% ORAL RINSE 60 ML BOTTLE SWISH/SPIT SCH ×2 (09:13→22:20)
[2018-06-10] MEDS ORDERED: POTASSIUM CHLORIDE 20 MEQ TABLET PO PRN (11:00)
[2018-06-10] MEDS ORDERED: ALUMINUM/MAGNES/SIMETH MAX STR 30 ML UDCUP PO PRN (11:00)
[2018-06-10] MEDS ORDERED: MAGNESIUM SULF RIDER 4 GM in PREMIX 1 EACH IV PRN (11:00)
[2018-06-10] MEDS ORDERED: MAGNESIUM SULF RIDER 2 GM in PREMIX 1 EACH IV PRN (11:00)
[2018-06-10] MEDS ORDERED: ACETAMINOPHEN 325 MG TABLET PO PRN (11:00)
[2018-06-10] MEDS ORDERED: DEXTROSE 50% 25 GM/50 ML VIAL IV PRN (11:00)
[2018-06-10] MEDS ORDERED: GLUCAGON 1 MG VIAL IM PRN ×2 (11:00)
[2018-06-10] MEDS ORDERED: ZALEPLON 5 MG CAPSULE PO PRN (11:00)
[2018-06-10] MEDS ORDERED: MAGNESIUM HYDROXIDE SUSP 30 ML UDCUP PO PRN (11:00)
[2018-06-10] MEDS ORDERED: DEXTROSE 50% 25 GM/50 ML SYRINGE IV PRN (11:00)
[2018-06-10] MEDS ORDERED: SODIUM CHLOR 0.45% KCL 20 MEQ 20 MEQ/1,000 ML BAG IV SCH (11:00)
[2018-06-10] MEDS: ONDANSETRON 4 MG/2 ML VIAL IV PRN (12:22)
[2018-06-10] MEDS: SPIRONOLACTONE 25 MG TABLET PO SCH (14:29)
[2018-06-10] MEDS: ASPIRIN EC 81 MG TABLET PO SCH (14:29)
[2018-06-10] MEDS: CHOLECALCIFEROL 1,000 UNIT TABLET PO SCH (14:29)
[2018-06-10] MEDS: OMEGA 3 ACID ETHYL ESTERS 1 GM CAPSULE PO SCH (14:30)
[2018-06-11] MEDS: methylPREDNISolone SOD SUC 40 MG/1 ML VIAL IV SCH (01:47)
[2018-06-11] MEDS: CEFEPIME 1,000 MG in SYRINGE 1 EACH IV SCH ×2 (01:50→15:19)
[2018-06-11] MEDS: ALBUTEROL/IPRATROPIUM 3 ML NEB RESP TX SCH ×6 (04:02→23:05)
[2018-06-11] MEDS ORDERED: FUROSEMIDE 40 MG/4 ML VIAL IV ONE (06:00)
[2018-06-11 06:44] LABS: Alanine Aminotransferase 40 U/L (16-61); Albumin 2.8 G/DL (3.4-5.0); Alkaline Phosphatase 66 U/L (45-117); Aspartate Amino Transferase 18 U/L (0-37); Bilirubin,Indirect 0.6 MG/DL (0.0-1.0); Blood Urea Nitrogen 34 MG/DL (7-18); Calcium 8.8 MG/DL (8.5-10.1); Glucose 151 MG/DL (74-106); Potassium 5.2 MMOL/L (3.5-5.1); Sodium 136 MMOL/L (136-145); Total Protein 5.9 G/DL (6.4-8.3)
[2018-06-11 06:45] LABS: Basophils % 0.2 % (0.0-0.8); Hematocrit 40.1 VOL% (42.0-52.0); Hemoglobin 12.7 GM/DL (14.0-18.0); Immature Granulocytes % 2.1 %; Immature Granulocytes Absolute 0.39 #; Lymphocytes % 5.5 % (21.2-54.2); Mean Corpuscular HGB Conc 31.7 GM/DL (32-36); Mean Corpuscular Hemoglobin 29 PG (27-34); Mean Corpuscular Volume 90.9 FL (87-102); Mean Platelet Volume 11.5 FL (9.6-12.0); Monocytes # 0.9 10*3/uL (0.11-0.8); Monocytes % 4.9 % (1.7-12.7); Neutrophils # 16.4 10*3/uL (1.4-7.4); Neutrophils % 87.3 % (38.7-73.9); Platelet Count 289 T/CUMM (130-400); Red Blood Count 4.41 MC/CUMM (3.8-5.5); Red Cell Distribution Width 13.3 % (9.3-17.3); White Blood Count 18.7 T/CUMM (4-12)
[2018-06-11 06:48] LABS: Troponin I 0.394 NG/ML (0.00-0.045)
[2018-06-11] MEDS: PANTOPRAZOLE 40 MG TABLET PO SCH (10:06)
[2018-06-11] MEDS: CHOLECALCIFEROL 1,000 UNIT TABLET PO SCH (10:06)
[2018-06-11] MEDS: LABETALOL 200 MG TABLET PO SCH ×2 (10:06→20:50)
[2018-06-11] MEDS: ASPIRIN EC 81 MG TABLET PO SCH (10:06)
[2018-06-11] MEDS: DOCUSATE SODIUM 100 MG CAPSULE PO SCH (10:06)
[2018-06-11] MEDS: SPIRONOLACTONE 25 MG TABLET PO SCH (10:06)
[2018-06-11] MEDS: predniSONE 5 MG TABLET PO SCH ×2 (10:06→20:50)
[2018-06-11] MEDS: OMEGA 3 ACID ETHYL ESTERS 1 GM CAPSULE PO SCH (10:06)
[2018-06-11] MEDS: FERROUS SULFATE 325 MG TABLET PO SCH (10:07)
[2018-06-11] MEDS: LOSARTAN 50 MG TABLET PO SCH (10:09)
[2018-06-11] MEDS: CHLORHEXIDINE 0.12% ORAL RINSE 60 ML BOTTLE SWISH/SPIT SCH ×2 (10:10→20:51)
[2018-06-12] MEDS: CEFEPIME 1,000 MG in SYRINGE 1 EACH IV SCH ×2 (02:16→14:30)
[2018-06-12] MEDS: ALBUTEROL/IPRATROPIUM 3 ML NEB RESP TX SCH ×6 (03:07→23:51)
[2018-06-12] MEDS: ONDANSETRON 4 MG/2 ML VIAL IV PRN (05:17)
[2018-06-12 05:30] LABS: Basophils # 0.1 10*3/uL (0.0-0.2); Basophils % 0.3 % (0.0-0.8); Eosinophils # 0.1 10*3/uL (0.0-0.87); Eosinophils % 0.7 % (0.00-10.9); Hematocrit 40.5 VOL% (42.0-52.0); Hemoglobin 13.2 GM/DL (14.0-18.0); Immature Granulocytes % 3.5 %; Immature Granulocytes Absolute 0.59 #; Lymphocytes # 2.3 10*3/uL (1.4-4.0); Lymphocytes % 13.5 % (21.2-54.2); Mean Corpuscular HGB Conc 32.6 GM/DL (32-36); Mean Corpuscular Hemoglobin 29 PG (27-34); Mean Corpuscular Volume 87.9 FL (87-102); Mean Platelet Volume 11.4 FL (9.6-12.0); Monocytes # 1.5 10*3/uL (0.11-0.8); Monocytes % 8.7 % (1.7-12.7); Neutrophils # 12.3 10*3/uL (1.4-7.4); Neutrophils % 73.3 % (38.7-73.9); Platelet Count 269 T/CUMM (130-400); Red Blood Count 4.61 MC/CUMM (3.8-5.5); Red Cell Distribution Width 13.3 % (9.3-17.3); White Blood Count 16.7 T/CUMM (4-12)
[2018-06-12 05:58] LABS: Lymphocytes 12 % (20-55); Myelocytes 2 %; Segmented Neutrophils 78 % (50-85); Total Cells Counted 100
[2018-06-12 05:59] LABS: Hypochromasia 1+; Microcytosis 1+; Platelet Estimate Normal
[2018-06-12 06:01] LABS: Alanine Aminotransferase 40 U/L (16-61); Albumin 2.8 G/DL (3.4-5.0); Alkaline Phosphatase 61 U/L (45-117); Aspartate Amino Transferase 19 U/L (0-37); Bilirubin,Direct < 0.100 MG/DL (0.0-0.20); Bilirubin,Indirect 0.8 MG/DL (0.0-1.0); Blood Urea Nitrogen 37 MG/DL (7-18); Calcium 8.8 MG/DL (8.5-10.1); Glucose 134 MG/DL (74-106); Osmolality,Calculated 278.2 MOS/KG (273-304); Potassium 4.4 MMOL/L (3.5-5.1); Sodium 134 MMOL/L (136-145); Total Protein 6.1 G/DL (6.4-8.3)
[2018-06-12 06:07] LABS: Troponin I 0.356 NG/ML (0.00-0.045)
[2018-06-12] MEDS: predniSONE 5 MG TABLET PO SCH ×2 (08:42→20:24)
[2018-06-12] MEDS: LABETALOL 200 MG TABLET PO SCH ×2 (08:42→20:24)
[2018-06-12] MEDS: OMEGA 3 ACID ETHYL ESTERS 1 GM CAPSULE PO SCH (08:42)
[2018-06-12] MEDS: ASPIRIN EC 81 MG TABLET PO SCH (08:42)
[2018-06-12] MEDS: PANTOPRAZOLE 40 MG TABLET PO SCH (08:42)
[2018-06-12] MEDS: CHOLECALCIFEROL 1,000 UNIT TABLET PO SCH (08:42)
[2018-06-12] MEDS: LOSARTAN 50 MG TABLET PO SCH (08:42)
[2018-06-12] MEDS: SPIRONOLACTONE 25 MG TABLET PO SCH (08:42)
[2018-06-12] MEDS: DOCUSATE SODIUM 100 MG CAPSULE PO SCH ×2 (08:50→12:12)
[2018-06-12] MEDS: FERROUS SULFATE 325 MG TABLET PO SCH (08:51)
[2018-06-12] MEDS: CHLORHEXIDINE 0.12% ORAL RINSE 60 ML BOTTLE SWISH/SPIT SCH ×2 (10:10→20:26)
[2018-06-13] MEDS: CEFEPIME 1,000 MG in SYRINGE 1 EACH IV SCH (03:23)
[2018-06-13] MEDS: ALBUTEROL/IPRATROPIUM 3 ML NEB RESP TX SCH ×2 (05:00→08:00)
[2018-06-13 08:19] VITALS: BP 118/69
[2018-06-13] MEDS: SPIRONOLACTONE 25 MG TABLET PO SCH (09:36)
[2018-06-13] MEDS: OMEGA 3 ACID ETHYL ESTERS 1 GM CAPSULE PO SCH (09:37)
[2018-06-13] MEDS: FERROUS SULFATE 325 MG TABLET PO SCH (09:37)
[2018-06-13] MEDS: predniSONE 5 MG TABLET PO SCH (09:37)
[2018-06-13] MEDS: LOSARTAN 50 MG TABLET PO SCH (09:37)
[2018-06-13] MEDS: DOCUSATE SODIUM 100 MG CAPSULE PO SCH (09:37)
[2018-06-13] MEDS: ASPIRIN EC 81 MG TABLET PO SCH (09:37)
[2018-06-13] MEDS: LABETALOL 200 MG TABLET PO SCH (09:38)
[2018-06-13] MEDS: PANTOPRAZOLE 40 MG TABLET PO SCH (09:38)
[2018-06-13] MEDS: CHOLECALCIFEROL 1,000 UNIT TABLET PO SCH (09:38)
[2018-06-13] MEDS: CHLORHEXIDINE 0.12% ORAL RINSE 60 ML BOTTLE SWISH/SPIT SCH (09:44)
== END 2018-06-13 12:08 | disposition home health service (06) | DRG 235 ==
LOC: N.ICU 19:55 → N.CVR 06-06 06:56 → N.ICU 06-09 16:45 → N.TELES 06-10 10:37

== ENCOUNTER 2018-06-16 11:41 | Observation (INO) ==
[2018-06-16] MEDS ORDERED: MORPHINE 4 MG/1 ML VIAL IV PRN (12:32)
[2018-06-16] MEDS ORDERED: ONDANSETRON 4 MG/2 ML VIAL IV PRN (12:32)
[2018-06-16] MEDS ORDERED: ASPIRIN 325 MG TABLET PO STA (12:32)
[2018-06-16 12:52] LABS: Basophils % 0.3 % (0.0-0.8); Eosinophils # 0.2 10*3/uL (0.0-0.87); Eosinophils % 1.7 % (0.00-10.9); Hematocrit 36.7 VOL% (42.0-52.0); Hemoglobin 11.8 GM/DL (14.0-18.0); Immature Granulocytes % 3.7 %; Immature Granulocytes Absolute 0.41 #; Lymphocytes # 1.1 10*3/uL (1.4-4.0); Lymphocytes % 9.7 % (21.2-54.2); Mean Corpuscular HGB Conc 32.2 GM/DL (32-36); Mean Corpuscular Volume 88.9 FL (87-102); Mean Platelet Volume 10.9 FL (9.6-12.0); Monocytes % 6.3 % (1.7-12.7); Neutrophils % 78.3 % (38.7-73.9); Platelet Count 163 T/CUMM (130-400); Red Blood Count 4.13 MC/CUMM (3.8-5.5); Red Cell Distribution Width 13.7 % (9.3-17.3); White Blood Count 11.2 T/CUMM (4-12)
[2018-06-16] MEDS ORDERED: SODIUM CHLORIDE 0.9% 500 ML IV STA (12:52)
[2018-06-16 13:01] LABS: INR 0.9; PT Patient Result 10.1 SECS; Partial Thromboplastin Time 24.2 SECS (0-40)
[2018-06-16 13:11] LABS: Bilirubin,Total 0.4 MG/DL (0.2-1.0); Osmolality,Calculated 275.8 MOS/KG (273-304); Total Protein 5.7 G/DL (6.4-8.3)
[2018-06-16] MEDS ORDERED: GLUCAGON 1 MG VIAL IM PRN (13:36)
[2018-06-16] MEDS ORDERED: methylPREDNISolone SOD SUC 125 MG/2 ML VIAL IV STA (13:36)
[2018-06-16] MEDS ORDERED: DEXTROSE 50% 25 GM/50 ML VIAL IV PRN (13:36)
[2018-06-16] MEDS ORDERED: MAGNESIUM SULF RIDER 2 GM in PREMIX 1 EACH IV PRN (13:36)
[2018-06-16] MEDS ORDERED: MAGNESIUM SULF RIDER 4 GM in PREMIX 1 EACH IV PRN (13:36)
[2018-06-16 13:54] LABS: Sedimentation Rate-Westergren 42 MM/HR (0-20)
[2018-06-16] MEDS ORDERED: SODIUM CHLORIDE 0.9% 1,000 ML IV SCH (14:00)
[2018-06-16] MEDS: INSULIN LISPRO 100 UNIT/ML SUBCUT SCH ×2 (16:59→21:29)
[2018-06-16] MEDS: methylPREDNISolone SOD SUC 40 MG/1 ML VIAL IV SCH (21:29)
[2018-06-17] MEDS: methylPREDNISolone SOD SUC 40 MG/1 ML VIAL IV SCH ×2 (03:28→09:12)
[2018-06-17] MEDS: FUROSEMIDE 40 MG TABLET PO SCH (09:42)
[2018-06-17] MEDS: INSULIN LISPRO 100 UNIT/ML SUBCUT SCH ×4 (09:42→21:28)
[2018-06-18 08:09] VITALS: BP 172/82
[2018-06-18] MEDS: INSULIN LISPRO 100 UNIT/ML SUBCUT SCH (08:38)
[2018-06-18] MEDS: FUROSEMIDE 40 MG TABLET PO SCH (08:50)
== END 2018-06-18 11:38 | disposition home or self-care (01) ==
LOC: N.ED 11:41 → N.EDINP 11:41 → N.TELES 16:09

== ENCOUNTER 2021-11-10 09:44 | Inpatient (IN) ==
[2021-11-06 15:26] LABS: Basophils # 0.1 10*3/uL (0.0-0.2); Basophils % 0.7 % (0.0-0.8); Eosinophils # 0.2 10*3/uL (0.0-0.87); Eosinophils % 1.7 % (0.00-10.9); Hematocrit 31.3 VOL% (42.0-52.0); Hemoglobin 8.9 GM/DL (14.0-18.0); Immature Granulocytes % 0.3 %; Immature Granulocytes Absolute 0.03 #; Lymphocytes # 1.2 10*3/uL (1.4-4.0); Lymphocytes % 13.3 % (21.2-54.2); Mean Corpuscular HGB Conc 28.4 GM/DL (32-36); Mean Corpuscular Volume 68.8 FL (87-102); Mean Platelet Volume 8.9 FL (9.6-12.0); Monocytes # 0.7 10*3/uL (0.11-0.8); Monocytes % 8.1 % (1.7-12.7); Neutrophils % 75.9 % (38.7-73.9); Platelet Count 537 T/CUMM (130-400); Red Blood Count 4.55 MC/CUMM (3.8-5.5); Red Cell Distribution Width 18.6 % (9.3-17.3); White Blood Count 8.9 T/CUMM (4-12)
[2021-11-06 15:29] LABS: Bilirubin,Total 0.4 MG/DL (0.20-1.00); Calcium 9.5 MG/DL (8.5-10.1); Osmolality,Calculated 269.4 MOS/KG (273-304); Potassium 4.6 MMOL/L (3.5-5.1)
[~2021-11-10 09:44] MED LIST: LACTATED RINGERS 1,000 ML IV SCH; cefTRIAXone 1,000 MG VIAL ONE; cefTRIAXone 1,000 MG in SODIUM CHLORIDE 0.9% 100 ML IV ONE
[2021-11-10] MEDS ORDERED: DIAZEPAM 5 MG TABLET PO ONE (10:12)
[2021-11-10] MEDS ORDERED: FAMOTIDINE 20 MG TABLET PO ONE (10:12)
[2021-11-10] MEDS ORDERED: ALVIMOPAN 12 MG CAPSULE PO STA (11:27)
[2021-11-10] MEDS ORDERED: ALVIMOPAN 12 MG CAPSULE ONE (11:28)
[2021-11-10] MEDS ORDERED: ROCURONIUM 50 MG/5 ML VIAL IV ONE ×2 (11:31→15:12)
[2021-11-10] MEDS ORDERED: propofoL 200 MG/20 ML VIAL IV ONE (11:31)
[2021-11-10] MEDS ORDERED: SUCCINYLCHOLINE 200 MG/10 ML VIAL ONE (11:31)
[2021-11-10] MEDS ORDERED: LIDOCAINE 2% 5 ML VIAL ONE (11:31)
[2021-11-10] MEDS ORDERED: KETAMINE 500 MG/10 ML VIAL ONE (11:31)
[2021-11-10] MEDS ORDERED: DEXMEDETOMIDINE 200 MCG/2 ML VIAL ONE ×2 (11:31→14:37)
[2021-11-10] MEDS ORDERED: BUPIVACAINE 0.5% 50 ML VIAL ONE (11:31)
[2021-11-10] MEDS ORDERED: DEXAMETHASONE 4 MG/1 ML VIAL ONE (11:38)
[2021-11-10] MEDS ORDERED: ROPIVACAINE 0.5% 30 ML VIAL ONE (12:56)
[2021-11-10] MEDS ORDERED: fentaNYL 100 MCG/2 ML VIAL ONE ×2 (14:26→15:58)
[2021-11-10] MEDS ORDERED: LACTATED RINGERS 1,000 ML IV ONE (15:07)
[2021-11-10] MEDS ORDERED: diphenhydrAMINE 50 MG/1 ML VIAL IV PRN ×2 (15:58→17:27)
[2021-11-10] MEDS ORDERED: ONDANSETRON 4 MG/2 ML VIAL IV PRN (15:58)
[2021-11-10] MEDS ORDERED: PROMETHAZINE INJ 25 MG in SODIUM CHLORIDE 0.9% 50 ML IV PRN (15:58)
[2021-11-10] MEDS ORDERED: NEOSTIGMINE 10 MG/10 ML VIAL ONE (17:26)
[2021-11-10] MEDS ORDERED: PROMETHAZINE 25 MG/1 ML VIAL IM PRN (17:27)
[2021-11-10] MEDS ORDERED: SIMETHICONE CHEW 125 MG TABLET PO PRN (17:27)
[2021-11-10] MEDS ORDERED: SUGAMMADEX 200 MG/2 ML VIAL IV ONE (17:27)
[2021-11-10] MEDS ORDERED: DESFLURANE 1 UNIT/15 MINUTE INH ONE (17:40)
[2021-11-10] MEDS: HYDROmorphone 1 MG/1 ML SYRINGE IV PRN ×3 (17:55→23:18)
[2021-11-10 18:59] LABS: Calcium 10.6 MG/DL (8.5-10.1); Osmolality,Calculated 267.8 MOS/KG (273-304); Potassium 4.7 MMOL/L (3.5-5.1)
[2021-11-10 19:00] LABS: Basophils % 0.2 % (0.0-0.8); Eosinophils % 0.1 % (0.00-10.9); Hematocrit 30.1 VOL% (42.0-52.0); Hemoglobin 8.7 GM/DL (14.0-18.0); Immature Granulocytes % 0.9 %; Lymphocytes # 0.5 10*3/uL (1.4-4.0); Lymphocytes % 4.1 % (21.2-54.2); Mean Corpuscular HGB Conc 28.9 GM/DL (32-36); Mean Corpuscular Volume 68.6 FL (87-102); Mean Platelet Volume 8.6 FL (9.6-12.0); Monocytes # 0.4 10*3/uL (0.11-0.8); Monocytes % 3.6 % (1.7-12.7); Neutrophils % 91.1 % (38.7-73.9); Platelet Count 492 T/CUMM (130-400); Red Blood Count 4.39 MC/CUMM (3.8-5.5); Red Cell Distribution Width 18.5 % (9.3-17.3); White Blood Count 11.2 T/CUMM (4-12)
[2021-11-10] MEDS ORDERED: MAGNESIUM SULF RIDER 4 GM/100 ML PREMIX IV PRN (19:32)
[2021-11-10] MEDS ORDERED: MAGNESIUM SULF RIDER 2 GM/50 ML PREMIX IV PRN (19:32)
[2021-11-10 19:36] LABS: Band Neutrophils 1 % (0-10); Lymphocytes 5 % (20-55); Total Cells Counted 100
[2021-11-10 19:41] LABS: Hypochromia 1+; Microcytosis 1+
[2021-11-10 19:42] LABS: Platelet Estimate Increased
[2021-11-10] MEDS: SODIUM CHLORIDE 0.9% 1,000 ML IV SCH (23:04)
[2021-11-10] MEDS: ALVIMOPAN 12 MG CAPSULE PO SCH (23:19)
[2021-11-10] MEDS: RANOLAZINE 500 MG TABLET PO SCH (23:19)
[2021-11-10] MEDS: DOCUSATE SODIUM 100 MG CAPSULE PO SCH (23:19)
[2021-11-10] MEDS: ACETAMINOPHEN 325 MG TABLET PO SCH (23:20)
[2021-11-11] MEDS: HYDROmorphone 1 MG/1 ML SYRINGE IV PRN ×4 (02:10→21:02)
[2021-11-11] MEDS: oxyCODONE/ACETAMINOPHEN 5-325 MG TABLET PO PRN ×3 (03:16→15:27)
[2021-11-11] MEDS: ACETAMINOPHEN 325 MG TABLET PO SCH ×4 (05:03→23:28)
[2021-11-11 05:41] LABS: RBC,Urine 1 /HPF (0-4)
[2021-11-11 05:43] LABS: Glucose,Urine (UA) Negative (Negative); Ketones,Urine Negative (Negative); Nitrite,Urine Negative (Negative); Protein,Urine Negative (Negative); Urine Appearance Clear (Clear); Urine Color Yellow (Yellow)
[2021-11-11 05:44] LABS: Bilirubin,Urine Negative (Negative); Blood, Urine Negative (Negative); Urine Urobilinogen 0.2 eU/dL (<2.0)
[2021-11-11 07:09] LABS: Osmolality,Calculated 269.5 MOS/KG (273-304); Potassium 5.2 MMOL/L (3.5-5.1)
[2021-11-11 07:11] LABS: Basophils % 0.2 % (0.0-0.8); Eosinophils % 0.1 % (0.00-10.9); Hematocrit 30.4 VOL% (42.0-52.0); Immature Granulocytes % 0.5 %; Immature Granulocytes Absolute 0.04 #; Lymphocytes # 0.9 10*3/uL (1.4-4.0); Lymphocytes % 11.2 % (21.2-54.2); Mean Corpuscular HGB Conc 27.6 GM/DL (32-36); Mean Corpuscular Volume 70.7 FL (87-102); Mean Platelet Volume 8.7 FL (9.6-12.0); Monocytes # 0.8 10*3/uL (0.11-0.8); Monocytes % 9.8 % (1.7-12.7); Neutrophils % 78.2 % (38.7-73.9); Platelet Count 491 T/CUMM (130-400); Red Cell Distribution Width 18.6 % (9.3-17.3); White Blood Count 8.4 T/CUMM (4-12)
[2021-11-11 07:14] LABS: Hemoglobin 8.4 GM/DL (14.0-18.0)
[2021-11-11] MEDS: SODIUM CHLORIDE 0.9% 1,000 ML IV SCH ×3 (07:17→09:57)
[2021-11-11] MEDS: ALVIMOPAN 12 MG CAPSULE PO SCH ×2 (08:35→21:00)
[2021-11-11] MEDS: RANOLAZINE 500 MG TABLET PO SCH ×2 (08:35→21:00)
[2021-11-11] MEDS: cefTRIAXone 1,000 MG in SODIUM CHLORIDE 0.9% 100 ML IV SCH (08:35)
[2021-11-11] MEDS: DOCUSATE SODIUM 100 MG CAPSULE PO SCH ×2 (08:35→21:01)
[2021-11-11] MEDS ORDERED: POLYETHYLENE GLYCOL POWDER 17 GM PACK PO ONE (10:00)
[2021-11-11] MEDS: ONDANSETRON 4 MG/2 ML VIAL IV PRN (16:45)
[2021-11-12] MEDS: SODIUM CHLORIDE 0.9% 1,000 ML IV SCH ×3 (02:32→23:41)
[2021-11-12] MEDS: HYDROmorphone 1 MG/1 ML SYRINGE IV PRN ×3 (02:46→19:58)
[2021-11-12] MEDS: ACETAMINOPHEN 325 MG TABLET PO SCH ×4 (04:40→23:42)
[2021-11-12 05:37] LABS: Calcium 9.2 MG/DL (8.5-10.1); Osmolality,Calculated 276.7 MOS/KG (273-304); Potassium 4.5 MMOL/L (3.5-5.1)
[2021-11-12 05:44] LABS: % Iron Saturation 24.3 % (18-50)
[2021-11-12 05:59] LABS: Basophils % 0.6 % (0.0-0.8); Eosinophils # 0.2 10*3/uL (0.0-0.87); Eosinophils % 3.3 % (0.00-10.9); Hematocrit 27.7 VOL% (42.0-52.0); Hemoglobin 7.9 GM/DL (14.0-18.0); Immature Granulocytes % 0.6 %; Immature Granulocytes Absolute 0.03 #; Lymphocytes % 19.4 % (21.2-54.2); Mean Corpuscular HGB Conc 28.5 GM/DL (32-36); Mean Corpuscular Volume 69.6 FL (87-102); Mean Platelet Volume 8.6 FL (9.6-12.0); Monocytes # 0.5 10*3/uL (0.11-0.8); Monocytes % 9.4 % (1.7-12.7); Neutrophils % 66.7 % (38.7-73.9); Platelet Count 369 T/CUMM (130-400); Red Blood Count 3.98 MC/CUMM (3.8-5.5); Red Cell Distribution Width 18.6 % (9.3-17.3); White Blood Count 5.2 T/CUMM (4-12)
[2021-11-12] MEDS ORDERED: LOSARTAN 50 MG TABLET PO SCH (09:00)
[2021-11-12] MEDS: ASPIRIN EC 81 MG TABLET PO SCH (09:24)
[2021-11-12] MEDS: ALVIMOPAN 12 MG CAPSULE PO SCH ×2 (09:24→20:55)
[2021-11-12] MEDS: DOCUSATE SODIUM 100 MG CAPSULE PO SCH ×2 (09:24→20:55)
[2021-11-12] MEDS: oxyCODONE/ACETAMINOPHEN 5-325 MG TABLET PO PRN ×2 (09:24→17:46)
[2021-11-12] MEDS: RANOLAZINE 500 MG TABLET PO SCH ×2 (09:24→20:55)
[2021-11-12] MEDS: cefTRIAXone 1,000 MG in SODIUM CHLORIDE 0.9% 100 ML IV SCH (09:25)
[2021-11-12] MEDS: amLODIPine 10 MG TABLET PO SCH (09:25)
[2021-11-12] MEDS ORDERED: SODIUM CHLORIDE 0.9% 1,000 ML IV PRN (09:50)
[2021-11-12] MEDS: FERROUS SULFATE 325 MG TABLET PO SCH ×2 (13:59→14:53)
[2021-11-12] MEDS ORDERED: POLYETHYLENE GLYCOL POWDER 17 GM PACK PO PRN (14:21)
[2021-11-12 22:11] LABS: Hematocrit 32.6 VOL% (42.0-52.0)
[2021-11-12 22:13] LABS: Hemoglobin 9.5 GM/DL (14.0-18.0)
[2021-11-13] MEDS: ONDANSETRON 4 MG/2 ML VIAL IV PRN (02:58)
[2021-11-13] MEDS: HYDROmorphone 1 MG/1 ML SYRINGE IV PRN (02:59)
[2021-11-13] MEDS: ACETAMINOPHEN 325 MG TABLET PO SCH ×4 (04:41→22:10)
[2021-11-13 06:26] LABS: Folate 7.59 NG/ML (5.38-24.0)
[2021-11-13 06:48] LABS: Basophils % 0.7 % (0.0-0.8); Eosinophils # 0.2 10*3/uL (0.0-0.87); Eosinophils % 4.5 % (0.00-10.9); Hematocrit 32.9 VOL% (42.0-52.0); Hemoglobin 9.5 GM/DL (14.0-18.0); Immature Granulocytes % 0.7 %; Immature Granulocytes Absolute 0.03 #; Lymphocytes # 0.9 10*3/uL (1.4-4.0); Lymphocytes % 19.4 % (21.2-54.2); Mean Corpuscular HGB Conc 28.9 GM/DL (32-36); Monocytes # 0.3 10*3/uL (0.11-0.8); Monocytes % 7.3 % (1.7-12.7); Neutrophils % 67.4 % (38.7-73.9); Platelet Count 394 T/CUMM (130-400); Red Blood Count 4.57 MC/CUMM (3.8-5.5); Red Cell Distribution Width 20.5 % (9.3-17.3); White Blood Count 4.5 T/CUMM (4-12)
[2021-11-13 06:55] LABS: Calcium 8.6 MG/DL (8.5-10.1); Osmolality,Calculated 271.8 MOS/KG (273-304); Potassium 4.4 MMOL/L (3.5-5.1)
[2021-11-13] MEDS ORDERED: CHOLECALCIFEROL 1,000 UNIT TABLET PO SCH (09:00)
[2021-11-13] MEDS ORDERED: SODIUM PHOSPHATE ENEMA 133 ML BOTTLE RECTAL ONE (09:30)
[2021-11-13] MEDS: ASCORBIC ACID 500 MG TABLET PO SCH (09:32)
[2021-11-13] MEDS: RANOLAZINE 500 MG TABLET PO SCH ×2 (09:32→20:44)
[2021-11-13] MEDS: CHOLECALCIFEROL 5,000 UNIT TABLET PO SCH (09:33)
[2021-11-13] MEDS: DOCUSATE SODIUM 100 MG CAPSULE PO SCH ×2 (09:33→20:45)
[2021-11-13] MEDS: OMEGA 3 ACID ETHYL ESTERS 1 GM CAPSULE PO SCH (09:33)
[2021-11-13] MEDS: oxyCODONE/ACETAMINOPHEN 5-325 MG TABLET PO PRN ×2 (09:33→15:16)
[2021-11-13] MEDS: amLODIPine 10 MG TABLET PO SCH (09:33)
[2021-11-13] MEDS: ASPIRIN EC 81 MG TABLET PO SCH (09:33)
[2021-11-13] MEDS: cefTRIAXone 1,000 MG in SODIUM CHLORIDE 0.9% 100 ML IV SCH (09:34)
[2021-11-13] MEDS: FERROUS SULFATE 325 MG TABLET PO SCH (09:34)
[2021-11-13] MEDS: ALVIMOPAN 12 MG CAPSULE PO SCH ×2 (09:36→20:45)
[2021-11-13] MEDS: SODIUM CHLORIDE 0.9% 1,000 ML IV SCH (13:30)
[2021-11-13] MEDS: CYCLOBENZAPRINE 10 MG TABLET PO SCH ×3 (15:16→20:44)
[2021-11-14] MEDS: ACETAMINOPHEN 325 MG TABLET PO SCH (06:34)
[2021-11-14 07:16] VITALS: BP 147/78
[2021-11-14] MEDS: SODIUM CHLORIDE 0.9% 1,000 ML IV SCH (09:54)
[2021-11-14] MEDS: amLODIPine 10 MG TABLET PO SCH (09:56)
[2021-11-14] MEDS: OMEGA 3 ACID ETHYL ESTERS 1 GM CAPSULE PO SCH (09:56)
[2021-11-14] MEDS: ALVIMOPAN 12 MG CAPSULE PO SCH (09:56)
[2021-11-14] MEDS: CYCLOBENZAPRINE 10 MG TABLET PO SCH (09:56)
[2021-11-14] MEDS: FERROUS SULFATE 325 MG TABLET PO SCH (09:56)
[2021-11-14] MEDS: DOCUSATE SODIUM 100 MG CAPSULE PO SCH (09:56)
[2021-11-14] MEDS: RANOLAZINE 500 MG TABLET PO SCH (09:56)
[2021-11-14] MEDS: ASPIRIN EC 81 MG TABLET PO SCH (09:57)
[2021-11-14] MEDS: CHOLECALCIFEROL 5,000 UNIT TABLET PO SCH (09:57)
[2021-11-14] MEDS: ASCORBIC ACID 500 MG TABLET PO SCH (09:57)
[2021-11-14] MEDS: cefTRIAXone 1,000 MG in SODIUM CHLORIDE 0.9% 100 ML IV SCH (09:57)
== END 2021-11-14 11:20 | disposition home or self-care (01) | DRG 657 ==
LOC: N.SDSINP 09:44 → N.OR 09:44 → N.SDSINP 09:46 → N.3E 18:50
PROVIDERS: ADMIT Surgery; ATTEND Surgery